=== PATIENT | male | born 1975 | race African-American/Black ===

== ENCOUNTER 2016-10-20 07:41 | Inpatient (IN) | payer MEDICAID ==
[~2016-10-20] VITALS: Ht 182.9 cm; Wt 113.4 kg
[2016-10-20 08:12] LABS: EOSINOPHILS % 0.7 % (0.0-5.0); HEMATOCRIT. 42.7 % (42.0-52.0); HEMOGLOBIN. 14.6 g/dL (14.0-18.0); LYMPHOCYTES % 34.3 % (20.0-50.0); MEAN CORPUSCULAR HEMOGLOBIN 28.7 pg (28.0-32.0); MEAN CORPUSCULAR VOLUME 83.7 fL (80.0-94.0); MEAN PLATELET VOLUME 7.7 fl (7.4-10.4); MONOCYTES % 6.5 % (2.0-8.0); NEUTROPHILS % 57.5 % (40.0-76.0); PLATELET 283 x1000/uL (130-400); RED CELL DISTRIBUTION WIDTH 13.2 % (11.6-14.6)
[2016-10-20 08:18] LABS: PROTHROMBIN TIME 10.3 sec (9.4-11.6)
[2016-10-20 08:26] LABS: CARBON DIOXIDE 25 mEq/L (21-32); CHLORIDE 106 mEq/L (98-107); TROPONIN I < 0.02 ng/mL (0.00-0.04)
[2016-10-20 08:28] LABS: BETA HYDROXYBUTYRATE 0.2 mMol/L (0.0-0.3)
[2016-10-20 08:35] LABS: CLARITY URINE CLEAR (CLEAR); COLOR URINE YELLOW (YELLOW); GLUCOSE URINE 3+ (NEGATIVE); KETONES URINE NEGATIVE (NEGATIVE); LEUKOCYTE ESTERASE URINE NEGATIVE (NEGATIVE); NITRITE URINE NEGATIVE (NEGATIVE); OCCULT BLOOD URINE NEGATIVE (NEGATIVE); PH URINE 6.5 (4.5-8.0); PROTEIN URINE 2+ (NEGATIVE); SPECIFIC GRAVITY URINE 1.043 (1.005-1.030)
[2016-10-20] MEDS ORDERED: LABE100T PO (09:54)
[2016-10-20] MEDS ORDERED: NIFE90TA2 PO (09:54)
[2016-10-20] MEDS ORDERED: LISI40TA4 PO (09:54)
[2016-10-20] MEDS ORDERED: ASPIRIN 325MG TABLET PO ONE (10:15)
[2016-10-20 13:02] VITALS: BP 166/103
[2016-10-20 13:12] VITALS: BP 166/103
[2016-10-20] MEDS ORDERED: ATOR40TA70 PO (13:24)
[2016-10-20] MEDS ORDERED: IPRATROPIUM/ALBUTEROL 0.5-3(2.5)MG/3ML NEB INH PRN (14:45)
[2016-10-20] MEDS ORDERED: ACETAMINOPHEN 325MG TABLET PO PRN (14:45)
[2016-10-20] MEDS ORDERED: ONDANSETRON HCL 4MG/2ML VIAL IV PRN (14:45)
[2016-10-20] MEDS ORDERED: DOCUSATE SODIUM 100MG CAPSULE PO PRN (14:45)
[2016-10-20] MEDS ORDERED: NIFEDIPINE XL 90MG TAB PO SCH (15:15)
[2016-10-20] MEDS ORDERED: LISINOPRIL 40MG TABLET PO SCH (15:15)
[2016-10-20] MEDS: CLOPIDOGREL 75MG TABLET PO SCH (15:59)
[2016-10-20 16:00] VITALS: BP 185/111
[2016-10-20] MEDS: LABETALOL HCL 100MG TABLET PO SCH (16:00)
[2016-10-20] MEDS ORDERED: DEXTROSE 50% WATER 50ML SYRINGE IV PRN (17:15)
[2016-10-20] MEDS: INSULIN LISPRO 100 UNITS/ML SUBCUT SCH ×2 (17:44→21:39)
[2016-10-20 19:32] LABS: ETHANOL BLOOD < 10 mg/dL; HDL CHOLESTEROL 44 mg/dL (40-59); LDL CHOLESTEROL 124 mg/dL (5-100); T4 FREE 1.13 ng/dL (0.76-1.46)
[2016-10-20 19:57] LABS: FOLIC ACID (FOLATE) SERUM 12.9 ng/mL (>5.38)
[2016-10-20 20:00] VITALS: BP_SYST 120; BP_SYST 182; BP_DIAS 112; BP_DIAS 85
[2016-10-20] MEDS: ATORVASTATIN CALCIUM 40MG TABLET PO SCH (20:55)
[2016-10-20] MEDS ORDERED: LISINOPRIL 40MG TABLET PO NR (21:00)
[2016-10-20] MEDS: BLOOD SUGAR DIAGNOSTIC STRIP TEST SCH (21:00)
[2016-10-20] MEDS ORDERED: ZOLPIDEM TARTRATE 5MG TABLET PO PRN (21:00)
[2016-10-20 22:00] VITALS: BP 163/97
[2016-10-20 22:26] LABS: *AMPHETAMINES SCREEN URINE NEGATIVE (NEGATIVE); *BARBITURATES SCREEN URINE NEGATIVE (NEGATIVE); *BENZODIAZEPINES SCREEN URINE NEGATIVE (NEGATIVE); *COCAINE SCREEN URINE NEGATIVE (NEGATIVE); CANNABINOID URINE SCREEN NEGATIVE (NEGATIVE); METHADONE URINE SCREEN NEGATIVE (NEGATIVE); OPIATES URINE SCREEN NEGATIVE (NEGATIVE); PHENCYCLIDINE URINE SCREEN NEGATIVE (NEGATIVE)
[2016-10-21] VITALS: BP 150/92
[2016-10-21 04:00] VITALS: BP 155/93
[2016-10-21] MEDS: BLOOD SUGAR DIAGNOSTIC STRIP TEST SCH ×4 (05:53→21:02)
[2016-10-21] MEDS: OMEPRAZOLE 20MG CAPSULE EXTENDED RELEASE PO SCH (06:13)
[2016-10-21] MEDS: INSULIN LISPRO 100 UNITS/ML SUBCUT SCH ×4 (06:17→22:00)
[2016-10-21 07:56] LABS: BASOPHILS % 0.4 % (0.0-2.0); EOSINOPHILS % 0.7 % (0.0-5.0); HEMATOCRIT. 41.8 % (42.0-52.0); HEMOGLOBIN. 14.3 g/dL (14.0-18.0); LYMPHOCYTES % 35.9 % (20.0-50.0); MEAN CORPUSCULAR HEMOGLOBIN 28.8 pg (28.0-32.0); MEAN CORPUSCULAR VOLUME 84.2 fL (80.0-94.0); MEAN PLATELET VOLUME 7.8 fl (7.4-10.4); MONOCYTES % 7.4 % (2.0-8.0); NEUTROPHILS % 55.6 % (40.0-76.0); PLATELET 261 x1000/uL (130-400); RED BLOOD CELL COUNT 4.96 mill/uL (4.7-6.1); RED CELL DISTRIBUTION WIDTH 13.2 % (11.6-14.6)
[2016-10-21 08:00] VITALS: BP 149/100
[2016-10-21 08:26] LABS: CARBON DIOXIDE 25 mEq/L (21-32); CHLORIDE 106 mEq/L (98-107); HDL CHOLESTEROL 41 mg/dL (40-59); LDL CHOLESTEROL 121 mg/dL (5-100)
[2016-10-21] MEDS ORDERED: LISINOPRIL 40MG TABLET PO SCH (09:00)
[2016-10-21] MEDS ORDERED: ASPIRIN 325MG TABLET PO ONE (09:00)
[2016-10-21] MEDS: CLOPIDOGREL 75MG TABLET PO SCH (10:00)
[2016-10-21] MEDS: LABETALOL HCL 100MG TABLET PO SCH ×2 (10:01→21:57)
[2016-10-21 12:00] VITALS: BP 168/108
[2016-10-21] MEDS: LOSARTAN POTASSIUM 50 MG TABLET PO SCH (12:53)
[2016-10-21] MEDS: LINAGLIPTIN 5MG TABLET PO SCH (12:53)
[2016-10-21] MEDS ORDERED: POTASSIUM CHLORIDE 20MEQ TABLET SR PO NR (15:00)
[2016-10-21 16:00] VITALS: BP 138/81
[2016-10-21] MEDS: METFORMIN HCL 500MG TABLET PO SCH (18:41)
[2016-10-21 20:00] VITALS: BP 147/91
[2016-10-21] MEDS: ATORVASTATIN CALCIUM 40MG TABLET PO SCH (21:56)
[2016-10-22] VITALS (7 sets, daily range): BP systolic 146–177; BP diastolic 75–114
[2016-10-22] MEDS: BLOOD SUGAR DIAGNOSTIC STRIP TEST SCH ×4 (05:47→20:32)
[2016-10-22] MEDS: OMEPRAZOLE 20MG CAPSULE EXTENDED RELEASE PO SCH (06:04)
[2016-10-22] MEDS: INSULIN LISPRO 100 UNITS/ML SUBCUT SCH ×4 (06:07→20:46)
[2016-10-22 08:12] LABS: BASOPHILS % 0.5 % (0.0-2.0); EOSINOPHILS % 0.5 % (0.0-5.0); HEMATOCRIT. 40.7 % (42.0-52.0); HEMOGLOBIN. 13.7 g/dL (14.0-18.0); MEAN CORPUSCULAR HEMOGLOBIN 28.2 pg (28.0-32.0); MEAN CORPUSCULAR VOLUME 83.7 fL (80.0-94.0); MONOCYTES % 6.1 % (2.0-8.0); NEUTROPHILS % 55.9 % (40.0-76.0); PLATELET 270 x1000/uL (130-400); RED BLOOD CELL COUNT 4.86 mill/uL (4.7-6.1); RED CELL DISTRIBUTION WIDTH 13.4 % (11.6-14.6)
[2016-10-22] MEDS: METFORMIN HCL 500MG TABLET PO SCH ×2 (09:02→17:59)
[2016-10-22] MEDS: LABETALOL HCL 100MG TABLET PO SCH ×2 (09:03→20:45)
[2016-10-22] MEDS: LINAGLIPTIN 5MG TABLET PO SCH (09:03)
[2016-10-22] MEDS: LOSARTAN POTASSIUM 50 MG TABLET PO SCH ×2 (09:03→20:44)
[2016-10-22] MEDS: CLOPIDOGREL 75MG TABLET PO SCH (09:03)
[2016-10-22 09:27] LABS: CHLORIDE 105 mEq/L (98-107)
[2016-10-22 09:39] LABS: CARBON DIOXIDE 18 mEq/L (21-32)
[2016-10-22] MEDS: NIFEDIPINE XL 90MG TAB PO SCH (11:45)
[2016-10-22] MEDS ORDERED: CLONIDINE 0.1MG TABLET PO SCH (15:30)
[2016-10-22] MEDS: ATORVASTATIN CALCIUM 40MG TABLET PO SCH (20:44)
[2016-10-23] VITALS: BP 135/82
[2016-10-23 04:00] VITALS: BP 141/85
[2016-10-23] MEDS: BLOOD SUGAR DIAGNOSTIC STRIP TEST SCH (05:48)
[2016-10-23] MEDS: INSULIN LISPRO 100 UNITS/ML SUBCUT SCH (05:57)
[2016-10-23 08:00] VITALS: BP 142/95
[2016-10-23] MEDS ORDERED: FAMOTIDINE 20MG TABLET PO SCH (09:00)
[2016-10-23] MEDS: METFORMIN HCL 500MG TABLET PO SCH (09:33)
[2016-10-23] MEDS: NIFEDIPINE XL 90MG TAB PO SCH (09:34)
[2016-10-23] MEDS: LINAGLIPTIN 5MG TABLET PO SCH (09:34)
[2016-10-23] MEDS: CLOPIDOGREL 75MG TABLET PO SCH (09:34)
[2016-10-23] MEDS: LABETALOL HCL 100MG TABLET PO SCH (09:34)
[2016-10-23] MEDS: LOSARTAN POTASSIUM 50 MG TABLET PO SCH (09:34)
[2016-10-23 11:22] VITALS: BP 142/95
== END 2016-10-23 11:48 | disposition home or self-care (01) | DRG 199 ==
LOC: ER 08:09 → ENRESERV 11:43 → 5WST 12:02 → EDBEDREQ 12:04 → EDBEDREQTM 12:04
PROVIDERS: ADMIT Family Medicine Adult Medicine; ATTEND Family Medicine Adult Medicine
DX: I16.9 Hypertensive crisis, unspecified (principal); E11.65 Type 2 diabetes mellitus with hyperglycemia; I11.9 Hypertensive heart disease without heart failure; R53.1 Weakness; E66.9 Obesity, unspecified; E78.5 Hyperlipidemia, unspecified; R26.9 Unspecified abnormalities of gait and mobility; J32.0 Chronic maxillary sinusitis; Z79.02 Long term (current) use of antithrombotics/antiplatelets; Z79.4 Long term (current) use of insulin; Z79.84 Long term (current) use of oral hypoglycemic drugs; Z79.899 Other long term (current) drug therapy; Z82.3 Family history of stroke; Z86.73 Personal history of transient ischemic attack (TIA), and cerebral infarction without residual deficits; Z68.33 Body mass index [BMI] 33.0-33.9, adult
CPT/HCPCS: 36415; 70450; 70544; 70553; 71010; 80048; 80053; 80061; 80305; 81001; 82010; 82607; 82746; 82962; 83036; 83735; 83880; 84439; 84443; 84481; 84484; 85025; 85610; 93005; 93306; 93880; 97162; 97165; 99291; G0482; J1815

== ENCOUNTER 2020-02-08 21:21 | Emergency (ER) | payer MEDICAID ==
[~2020-02-08] VITALS: Ht 182.9 cm; Wt 114.0 kg
[~2020-02-08 21:21] MED LIST: ATOR40TA70 PO; LABE100T5 PO; NIFE90TA2 PO
[2020-02-08] MEDS ORDERED: ACETAMINOPHEN 325MG TABLET PO ONE (22:15)
[2020-02-09] MEDS ORDERED: KETOROLAC 60MG/2ML VIAL IM ONE (01:30)
[2020-02-09 03:39] VITALS: BP 139/81
== END 2020-02-09 03:40 | disposition home or self-care (01) ==
LOC: ER 21:21
DX: M77.9 Enthesopathy, unspecified (principal); M25.511 Pain in right shoulder; I49.9 Cardiac arrhythmia, unspecified
CPT/HCPCS: 73030; 93005; 96372; 99283; J1885